=== PATIENT | male | born 1985 | race African-American/Black ===

== ENCOUNTER 2024-05-20 11:10 | Inpatient (IN) | payer SELFPAY ==
[~2024-05-20] VITALS: Ht 182.9 cm; Wt 78.6 kg
[2024-05-20 12:10] LABS: HEMATOCRIT. 43.1 % (42.0-52.0); MEAN CORPUSCULAR HGB CONC 32.6 g/dL (31.0-37.0); MEAN CORPUSCULAR VOLUME 82.8 fL (80.0-94.0); MEAN PLATELET VOLUME 9.4 fl (7.4-10.4); PLATELET 305 x1000/uL (130-400); RED CELL DISTRIBUTION WIDTH 13.5 % (11.6-14.6); WHITE BLOOD COUNT 21.5 x1000/uL (4.5-11.0)
[2024-05-20 12:11] LABS: CHLORIDE 106 mEq/L (98-107); DIFFERENTIAL COMMENT 1; POTASSIUM 3.5 mEq/L (3.5-5.1); SODIUM 137 mEq/L (136-145)
[2024-05-20 12:12] LABS: CALCIUM 9.4 mg/dL (8.7-10.4); CARBON DIOXIDE 25 mEq/L (21-32)
[2024-05-20 12:17] LABS: GLUCOSE 108 mg/dL (70-105); UREA NITROGEN BLOOD 8 mg/dL (9-23)
[2024-05-20 12:18] LABS: INR 1.1; PROTHROMBIN TIME 11.9 sec (9.6-11.0)
[2024-05-20 12:33] LABS: ETHANOL BLOOD < 10 mg/dL (<10)
[2024-05-20] MEDS: SODIUM CHLORIDE 0.9% 1000ML BAG (SEPSIS BOLUS) IV ONE (12:40)
[2024-05-20] MEDS: ACETAMINOPHEN 325MG TABLET PO STA (12:40)
[2024-05-20] MEDS: PIPERACILLIN/TAZO 3.375G/50ML 50 ML IV ONE (12:40)
[2024-05-20] MEDS: MORPHINE SULFATE 4 MG/ML INJ (FOR IV/IM USE) IV STA (12:41)
[2024-05-20] MEDS: ONDANSETRON HCL 4MG/2ML INJ IV STA (12:41)
[2024-05-20 13:18] LABS: PLATELET ESTIMATE NORMAL
[2024-05-20 15:01] LABS: ALANINE AMINOTRANSFERASE 10 IU/L (10-49); ALBUMIN 4.7 g/dL (3.2-4.8); ASPARTATE AMINOTRANSFERASE 13 IU/L (<34); BILIRUBIN DIRECT 0.6 mg/dL (<=3.0); BILIRUBIN TOTAL 1.2 mg/dL (0.1-1.0); PROTEIN TOTAL 7.1 g/dL (6.0-8.3)
[2024-05-20] MEDS ORDERED: CLONIDINE 0.1MG TABLET PO PRN (15:30)
[2024-05-20] MEDS ORDERED: IPRATROPIUM/ALBUTEROL 0.5-3(2.5)MG/3ML NEB NEB PRN (15:30)
[2024-05-20] MEDS ORDERED: GUAIFENESIN 200MG/10ML SUGAR FREE UDC PO PRN (15:30)
[2024-05-20] MEDS ORDERED: ZOLPIDEM TARTRATE 5MG TABLET PO PRN (15:30)
[2024-05-20] MEDS ORDERED: ONDANSETRON HCL 4MG/2ML INJ IV PRN (15:30)
[2024-05-20] MEDS ORDERED: NITROGLYCERIN 0.4MG TABLET SL SL PRN (15:30)
[2024-05-20] MEDS ORDERED: DOCUSATE SODIUM 100MG CAPSULE PO PRN (15:30)
[2024-05-20] MEDS ORDERED: MAGNESIUM/ALUMINUM HYDROXIDE/SIMETHICONE 30ML UDC PO PRN (15:30)
[2024-05-20] MEDS ORDERED: ACETAMINOPHEN 325MG TABLET PO PRN (15:30)
[2024-05-20 16:18] LABS: CLARITY URINE CLEAR (CLEAR); COLOR URINE YELLOW (YELLOW); GLUCOSE URINE NEGATIVE (NEGATIVE); KETONES URINE NEGATIVE (NEGATIVE); LEUKOCYTE ESTERASE URINE NEGATIVE (NEGATIVE); NITRITE URINE NEGATIVE (NEGATIVE); OCCULT BLOOD URINE TRACE (NEGATIVE); PROTEIN URINE NEGATIVE (NEGATIVE); SPECIFIC GRAVITY URINE 1.005 (1.005-1.030)
[2024-05-20] MEDS: DEXT 5%/LACTATED RINGERS 1,000 ML IV SCH (16:28)
[2024-05-20 16:33] LABS: *AMPHETAMINES SCREEN URINE NEGATIVE (NEGATIVE); *BENZODIAZEPINES SCREEN URINE NEGATIVE (NEGATIVE)
[2024-05-20 16:34] LABS: *BARBITURATES SCREEN URINE NEGATIVE (NEGATIVE); *COCAINE SCREEN URINE NEGATIVE (NEGATIVE); CANNABINOID URINE SCREEN NEGATIVE (NEGATIVE); ECSTASY MDMA SCREEN URINE NEGATIVE (NEGATIVE); METHADONE URINE SCREEN NEGATIVE (NEGATIVE); OPIATES URINE SCREEN PRESUMPTIVE POSITIVE (NEGATIVE); PHENCYCLIDINE URINE SCREEN NEGATIVE (NEGATIVE)
[2024-05-20] MEDS: ENOXAPARIN 40MG/0.4ML SYR SUBCUT SCH (16:41)
[2024-05-20 16:43] LABS: BACTERIA URINE NONE SEEN; RBC URINE 0-2 /hpf (0-2); SQUAMOUS EPITHELIAL CELL URINE 1+ /lpf (RARE/1+); WBC URINE 0-2 /hpf (0-2)
[2024-05-20 16:55] LABS: IRON 14 ug/dL (65-175)
[2024-05-20 16:57] LABS: TOTAL IRON BINDING CAPACITY 315 ug/dl (250-425)
[2024-05-20 16:58] LABS: FOLIC ACID (FOLATE) SERUM 7.89 ng/mL (>5.38); VITAMIN B12 SERUM 468 pg/mL (211-911)
[2024-05-20 17:00] LABS: T4 FREE 1.21 ng/dL (0.89-1.76); THYROID STIMULATING HORMONE 1.03 uIU/mL (0.55-4.78)
[2024-05-20] MEDS: VANCOMYCIN 1.5GM/250ML IV NR (19:28)
[2024-05-20] MEDS: KETOROLAC 15MG/ML VIAL IV PRN (21:12)
[2024-05-20] MEDS: PIPERACILLIN/TAZO 3.375G/50ML 50 ML IV SCH (21:53)
[2024-05-21] MEDS: VANCOMYCIN 1.25GM PMX (XELLIA) 250 ML IV SCH (06:28)
[2024-05-21 06:43] LABS: HEMATOCRIT. 39.4 % (42.0-52.0); HEMOGLOBIN. 12.5 g/dL (14.0-18.0); MEAN CORPUSCULAR HEMOGLOBIN 26.8 pg (28.0-32.0); MEAN CORPUSCULAR HGB CONC 31.8 g/dL (31.0-37.0); MEAN CORPUSCULAR VOLUME 84.1 fL (80.0-94.0); MEAN PLATELET VOLUME 9.5 fl (7.4-10.4); PLATELET 255 x1000/uL (130-400); RED BLOOD CELL COUNT 4.68 mill/uL (4.7-6.1); RED CELL DISTRIBUTION WIDTH 13.5 % (11.6-14.6); WHITE BLOOD COUNT 19.8 x1000/uL (4.5-11.0)
[2024-05-21 06:51] LABS: CHLORIDE 108 mEq/L (98-107); POTASSIUM 3.7 mEq/L (3.5-5.1); SODIUM 143 mEq/L (136-145)
[2024-05-21 06:53] LABS: DIFFERENTIAL COMMENT 1
[2024-05-21 06:54] LABS: CARBON DIOXIDE 29 mEq/L (21-32)
[2024-05-21 06:55] LABS: CALCIUM 9.3 mg/dL (8.7-10.4)
[2024-05-21 07:00] LABS: ALANINE AMINOTRANSFERASE < 7 IU/L (10-49); CREATININE 1.1 mg/dL (0.6-1.3); GLUCOSE 106 mg/dL (70-105); UREA NITROGEN BLOOD 8 mg/dL (9-23)
[2024-05-21 07:01] LABS: ASPARTATE AMINOTRANSFERASE 8 IU/L (<34)
[2024-05-21 07:02] LABS: BILIRUBIN TOTAL 1.2 mg/dL (0.1-1.0); PHOSPHORUS 1.5 mg/dL (2.5-4.9); PROTEIN TOTAL 6.3 g/dL (6.0-8.3)
[2024-05-21] MEDS: PANTOPRAZOLE SODIUM 40 MG/VIAL IV SCH (09:21)
[2024-05-21 17:15] LABS: PLATELET ESTIMATE NORMAL
[2024-05-22 00:26] VITALS: BP 127/82; PULSE 109; RESP 18; TEMP 100.9
[2024-05-22] MEDS: ACETAMINOPHEN 325MG TABLET PO PRN (01:12)
[2024-05-22 05:10] LABS: CHLORIDE 108 mEq/L (98-107); SODIUM 141 mEq/L (136-145)
[2024-05-22 05:11] LABS: CALCIUM 9.1 mg/dL (8.7-10.4); CARBON DIOXIDE 28 mEq/L (21-32)
[2024-05-22 05:16] LABS: CREATININE 0.9 mg/dL (0.6-1.3); GLUCOSE 91 mg/dL (70-105); UREA NITROGEN BLOOD 6 mg/dL (9-23)
[2024-05-22 08:00] VITALS: BP 110/75; PULSE 62; RESP 20; TEMP 98.2
[2024-05-22 12:00] VITALS: BP 112/54; PULSE 82; RESP 20; TEMP 97.9
[2024-05-22 16:00] VITALS: BP 108/75; PULSE 72; RESP 20; TEMP 97.3
[2024-05-22 20:00] VITALS: BP 112/77; PULSE 63; RESP 18; TEMP 97.3
[2024-05-22] MEDS: VANCOMYCIN 1.25GM PMX (XELLIA) 250 ML IV SCH (23:56)
[2024-05-23] VITALS: BP 105/73; PULSE 84; RESP 18; TEMP 97.3
[2024-05-23 04:00] VITALS: BP 115/75; PULSE 85; RESP 18; TEMP 97.3
[2024-05-23 07:17] LABS: BASOPHILS % 0.3 % (0.0-2.0); EOSINOPHILS % 2.6 % (0.0-5.0); HEMATOCRIT. 36.9 % (42.0-52.0); HEMOGLOBIN. 11.8 g/dL (14.0-18.0); LYMPHOCYTES % 16.1 % (20.0-50.0); MEAN CORPUSCULAR HEMOGLOBIN 26.9 pg (28.0-32.0); MEAN PLATELET VOLUME 9.3 fl (7.4-10.4); MONOCYTES % 7.4 % (2.0-8.0); NEUTROPHILS % 73.6 % (40.0-76.0); PLATELET 299 x1000/uL (130-400); RED BLOOD CELL COUNT 4.39 mill/uL (4.7-6.1); RED CELL DISTRIBUTION WIDTH 14.1 % (11.6-14.6); WHITE BLOOD COUNT 9.8 x1000/uL (4.5-11.0)
[2024-05-23 08:00] VITALS: BP 112/80; PULSE 79; RESP 20; TEMP 98.1
[2024-05-23 08:28] LABS: CHLORIDE 107 mEq/L (98-107); POTASSIUM 3.8 mEq/L (3.5-5.1); SODIUM 138 mEq/L (136-145)
[2024-05-23 08:29] LABS: CALCIUM 8.9 mg/dL (8.7-10.4); CARBON DIOXIDE 25 mEq/L (21-32)
[2024-05-23 08:34] LABS: CREATININE 0.9 mg/dL (0.6-1.3); GLUCOSE 77 mg/dL (70-105); UREA NITROGEN BLOOD 6 mg/dL (9-23)
[2024-05-23 08:36] LABS: VANCOMYCIN TROUGH 19.7 ug/mL (5.0-10.0)
[2024-05-23] MEDS ORDERED: LEVO750T68 MT (09:35)
[2024-05-23 11:05] VITALS: BP 112/80; PULSE 79; TEMP 98.1; O2SAT 96
[2024-05-23 12:00] VITALS: BP 127/84; PULSE 87; RESP 20; TEMP 97.2
== END 2024-05-23 12:48 | disposition home or self-care (01) | DRG 720 ==
LOC: ER 11:10 → 5WST 13:20 → EDBEDREQTM 13:27 → EDBEDREQ 13:27 → 6WST 05-22 00:23
PROVIDERS: ADMIT Internal Medicine; ATTEND Internal Medicine
DX: A41.9 Sepsis, unspecified organism (principal); N43.3 Hydrocele, unspecified; N45.3 Epididymo-orchitis; Z20.822 Contact with and (suspected) exposure to COVID-19; Z79.899 Other long term (current) drug therapy
CPT/HCPCS: 36415; 71045; 74176; 76870; 80048; 80053; 80076; 80202; 80305; 80320; 81003; 82607; 82746; 83036; 83540; 83550; 83605; 83735; 84100; 84145; 84439; 84443; 85025; 86592; 87426; 93005; 93306; 93970; 93976; 99291; J1650; J1885; J2270; J2405; J2470; J2543; J3370; J7030; G0480